=== PATIENT | female | born 1995 | race Caucasian/White ===

== ENCOUNTER 2017-10-15 16:03 | Emergency (ER) | payer OTHER ==
[2017-10-15 16:08] VITALS: BP 130/60; PULSE 77; RESP 18; TEMP 97.8
--- NOTE | 2017-10-15 16:31 | ED ---
General Adult HPI - General Chief complaint: Extremity Problem,Nontraumatic Stated complaint: poss DVT Time Seen by Provider: 10/15/17 16:10 Source: patient, family Mode of arrival: ambulatory Limitations: no limitations - History of Present Illness Initial comments: Christi is a female currently 30w who presents to the ED today for evaluation of bilateral lower extremity swelling which is progressively worsened over the past couple of weeks. Patient reports that she's noticed swelling in her bilateral lower extremities in addition has noticed that she has developed varicose veins which are worse in her left lower extremity than her right. Patient has no known history of DVT or PE. She has no known family history of DVT, PE or letting disorder. She is currently 30 weeks , however. She is physically active and walks on a daily basis. She has not had any recent immobilization of the lower extremities. She reports even bilaterally. Patient denies any other complaints aside from the usual fatigue of and a mild headache. Patient reports that she had hypertension and her first but has not been diagnosed with that during this . She did not suffer from preeclampsia or any other complications. Patient denies fevers, chills, vomiting, abdominal pain in the right upper quadrant abdominal pain. She denies any change in bowel or bladder habits. - Related Data Home Medications Medication Instructions Recorded Confirmed Jwk-Yyje-Sawxc Acid 1 cap PO DAILY 10/15/17 10/15/17 [-U Capsule (formulary)] Allergies Allergy/AdvReac Type Severity Reaction Status Date / Time No Known Allergies Allergy Verified 10/15/17 16:35 Review of Systems ROS Statement: Those systems with pertinent positive or pertinent negative responses have been documented in the HPI. ROS Other: All systems not noted in ROS Statement are negative. Constitutional: Denies: fever, chills Eyes: Denies: eye pain ENT: Denies: ear pain, throat pain Respiratory: Denies: cough, dyspnea Cardiovascular: Denies: chest pain, palpitations Endocrine: Reports: fatigue Gastrointestinal: Denies: abdominal pain, nausea, vomiting, diarrhea, constipation, hematemesis, melena Genitourinary: Denies: urgency, dysuria Musculoskeletal: Denies: back pain Skin: Reports: change in color (Varicose veins left lower extremity) Neurological: Reports: headache (Chronic). Denies: weakness, numbness, paresthesias, confusion Psychiatric: Denies: anxiety, depression Hematological/Lymphatic: Denies: easy bleeding, easy bruising Past Medical History Past Medical History: No Reported History Additional Past Medical History / Comment(s): Polycystic ovarian disease History of Any Multi-Drug Resistant Organisms: None Reported Past Surgical History: Section Additional Past Surgical History / Comment(s): Mole removed from neck; Left wrist ganglion cystectomy Past Psychological History: No Psychological Hx Reported Smoking Status: Former smoker Past Alcohol Use History: None Reported Past Drug Use History: None Reported - Past Family History Mother Family Medical History: Hypertension General Exam Limitations: no limitations General appearance: alert, in no apparent distress Head exam: Present: atraumatic, normocephalic Eye exam: Present: normal appearance, PERRL ENT exam: Present: normal exam Neck exam: Present: normal inspection Respiratory exam: Present: normal lung sounds bilaterally. Absent: respiratory distress, wheezes, rales, rhonchi, stridor Cardiovascular Exam: Present: regular rate, normal rhythm GI/Abdominal exam: Present: soft, other (Obese abdomen, Palpable uterine fundus) Extremities exam: Present: normal capillary refill, pedal edema, other (Left lower extremity). Absent: joint swelling, calf tenderness Back exam: Present: normal inspection, full ROM Neurological exam: Present: alert, oriented X3 Psychiatric exam: Present: normal affect, normal mood Skin exam: Present: warm, dry Course Vital Signs 10/15/17 16:05 Temperature 97.8 F Pulse Rate 77 Respiratory 18 Rate Blood Pressure 130/60 O2 Sat by Pulse 100 Oximetry Medical Decision Making - Medical Decision Making Patient was seen and evaluated, history was obtained from the patient She was sent to the emergency department by her apprentice lineman third step Dr. Aparicio for evaluation of possible lower extremity DVT Physical exam reveals an obese female with a gravid uterus, in no acute distress , mild bilateral lower extremity nonpitting edema Labs and venous Dopplers were ordered Labs were unremarkable Venous ultrasound was completed, mathematical technician reports that there are no acute DVTs. Results were discussed with the patient who expresses relief, patient is scheduled to follow up with OB tomorrow for further evaluation. All questions pertaining to care were answered to the best of my ability and the patient was discharged home in stable condition - Lab Data Result diagrams: 10/15/17 16:25 10/15/17 16:25 Lab Results 10/15/17 10/15/1718 Range/Units 16:25 16:25 16:25 WBC 13.0 H (4.0-11.0) k/uL RBC 3.63 L (3.80-5.40) m/uL Hgb 11.3 L (11.4-16.0) gm/dL Hct 32.5 L (34.0-46.0) % MCV 89.5 (80.0-100.0) fL MCH 31.1 (25.0-35.0) pg MCHC 34.7 (31.0-37.0) g/dL RDW 12.8 (11.5-15.5) % Plt Count 246 (150-450) k/uL Neutrophils % 79 % Lymphocytes % 15 % Monocytes % 4 % Eosinophils % 1 % Basophils % 0 % Neutrophils # 10.3 H (1.3-7.7) k/uL Lymphocytes # 1.9 (1.0-4.8) k/uL Monocytes # 0.5 (0-1.0) k/uL Eosinophils # 0.1 (0-0.7) k/uL Basophils # 0.0 (0-0.2) k/uL Sodium 138 (137-145) mmol/L Potassium 4.0 (3.5-5.1) mmol/L Chloride 105 (98-107) mmol/L Carbon Dioxide 21 L (22-30) mmol/L Anion Gap 12 mmol/L BUN 10 (7-17) mg/dL Creatinine 0.40 L (0.52-1.04) mg/dL Est GFR (CKD-EPI)AfAm >90 (>60 ml/min/1.73 sqM) Est GFR (CKD-EPI)NonAf >90 (>60 ml/min/1.73 sqM) Glucose 84 (74-99) mg/dL Calcium 9.2 (8.4-10.2) mg/dL Total Bilirubin 0.3 (0.2-1.3) mg/dL AST 26 (14-36) U/L ALT 20 (9-52) U/L Alkaline Phosphatase 96 (38-126) U/L Total Protein 6.6 (6.3-8.2) g/dL Albumin 3.5 (3.5-5.0) g/dL Urine Color Light Yellow Urine Appearance Cloudy H (Clear) Urine pH 7.0 (5.0-8.0) Ur Specific [place] 1.010 (1.001-1.035) Urine Protein Negative (Negative) Urine Glucose (UA) Negative (Negative) Urine Ketones Negative (Negative) Urine Blood Negative (Negative) Urine Nitrite Negative (Negative) Urine Bilirubin Negative (Negative) Urine Urobilinogen <2.0 (<2.0) mg/dL Ur Leukocyte Esterase Negative (Negative) Urine RBC 5 (0-5) /hpf Ur Squamous Epith Cells 1 (0-4) /hpf Amorphous Sediment Rare H (None) /hpf Disposition Clinical Impression: Edema of lower extremity in third trimester, antepartum Disposition: HOME SELF-CARE Condition: Good Instructions: Leg Edema (ED) Referrals: None,Stated [Primary Care Provider] - 1-2 days Time of Disposition: 19:04
[2017-10-15 16:37] LABS: Basophils % (A) 0 %; Eosinophils # (A) 0.1 k/uL (0-0.7); Eosinophils % (A) 1 %; HCT 32.5 % (34.0-46.0); HGB 11.3 gm/dL (11.4-16.0); Lymphocytes # (A) 1.9 k/uL (1.0-4.8); Lymphocytes % (A) 15 %; MCH 31.1 pg (25.0-35.0); MCHC 34.7 g/dL (31.0-37.0); MCV 89.5 fL (80.0-100.0); Mean Platelet Volume 6.8; Monocytes # (A) 0.5 k/uL (0-1.0); Monocytes % (A) 4 %; Neutrophils # (A) 10.3 k/uL (1.3-7.7); Neutrophils % (A) 79 %; Platelet Count 246 k/uL (150-450); RBC 3.63 m/uL (3.80-5.40); RDW 12.8 % (11.5-15.5)
[2017-10-15 16:45] LABS: Albumin 3.5 g/dL (3.5-5.0); Amorphous Sediment,Urine Rare /hpf; Anion Gap 12 mmol/L; Appearance,Urine Cloudy (Clear); Bilirubin,Urine Negative (Negative); Blood,Urine Negative (Negative); Calcium 9.2 mg/dL (8.4-10.2); Carbon Dioxide 21 mmol/L (22-30); Chloride 105 mmol/L (98-107); Color,Urine Light Yellow; Glucose 84 mg/dL (74-99); Glucose,Urine (UA) Negative (Negative); Ketones,Urine Negative (Negative); Leukocyte Esterase,Urine Negative (Negative); Nitrite,Urine Negative (Negative); Protein,Urine Negative (Negative); RBC,Urine 5 /hpf (0-5); Sodium 138 mmol/L (137-145); Squamous Epithelial Cell,Urine 1 /hpf (0-4); Total Bilirubin 0.3 mg/dL (0.2-1.3); Total Protein 6.6 g/dL (6.3-8.2); Urobilinogen,Urine <2.0 mg/dL (<2.0)
[2017-10-15 16:46] LABS: Blood Urea Nitrogen 10 mg/dL (7-17)
[2017-10-15 16:49] LABS: ALT 20 U/L (9-52); AST 26 U/L (14-36); Alkaline Phosphatase 96 U/L (38-126)
--- NOTE | 2017-10-15 20:24 | US ---
EXAMINATION TYPE: US venous doppler duplex LE BI DATE OF EXAM: 10/15/2017 6:30 PM COMPARISON: NONE CLINICAL HISTORY: edema. SIDE PERFORMED: TECHNIQUE: The lower extremity deep venous system is examined utilizing real time linear array sonog lola with graded compression, doppler sonography and color-flow sonography. VESSELS IMAGED: External Iliac Vein (EIV) Common Femoral Vein Deep Femoral Vein Greater Saphenous Vein * Femoral Vein Popliteal Vein Small Saphenous Vein * Proximal Calf Veins (* superficial vessels) Right Leg: Left Leg: IMPRESSION: Negative exam. No evidence of deep venous thrombosis in both legs.
== END 2017-10-15 19:30 | disposition home or self-care (01) ==
LOC: EC 16:03
DX: O12.03 Gestational edema, third trimester (principal); O22.03 Varicose veins of lower extremity in pregnancy, third trimester; O99.89 Other specified diseases and conditions complicating pregnancy, childbirth and the puerperium; R53.83 Other fatigue; R51 Headache; Z87.891 Personal history of nicotine dependence; Z79.899 Other long term (current) drug therapy; Z98.890 Other specified postprocedural states; Z3A.30 30 weeks gestation of pregnancy
CPT/HCPCS: 36415; 80053; 81001; 85025; 93970; 99284

== ENCOUNTER 2017-12-18 05:54 | Inpatient (IN) | payer OTHER ==
--- NOTE | 2017-12-17 21:04 | P.HPOB ---
History of Present Illness H&P Date: 12/17/17 Chief Complaint: Repeat section This is a 22-year-old female 2 para 1 with an estimated date of confinement of 12/23/2017, estimated gestational age of 39-2/7 weeks, who presents to labor and delivery for scheduled repeat section. She has been complaining of swelling in her feet along with some nausea and irregular pressure and contractions. Since her cervix is still been closed, she has made the decision to proceed with repeat section instead of vaginal after . Her course was essentially uncomplicated. labs: GC/chlamydia-negative Hepatitis B surface antigen-negative RPR-nonreactive Rubella-immune Light type-A+ Antibody screen-negative HIV-nonreactive Hemoglobin-11.9 Random glucose-85 Obstetrical ultrasound-normal anatomy One hour Glucola-61 Group B streptococcus-negative Obstetrical history: . History of 1 delivery at 40-3/7 weeks due to failed induction of labor. Gynecologic history: No history of sexual transmitted diseases. Review of Systems Constitutional: Denies chills, Denies fever Eyes: denies blurred vision, denies pain Ears, nose, mouth and throat: Denies headache, Denies sore throat Cardiovascular: Denies chest pain, Denies shortness of breath Respiratory: Denies cough Gastrointestinal: Reports nausea Genitourinary: Reports pelvic pain, Reports Musculoskeletal: Reports low back pain Musculoskeletal: bilateral: ankle swelling, foot swelling Integumentary: Denies pruritus, Denies rash Neurological: Denies numbness, Denies weakness Psychiatric: Denies anxiety, Denies depression Past Medical History Past Medical History: No Reported History Additional Past Medical History / Comment(s): Polycystic ovarian disease History of Any Multi-Drug Resistant Organisms: None Reported Past Surgical History: Section Additional Past Surgical History / Comment(s): Mole removed from neck; Left wrist ganglion cystectomy Past Anesthesia/Blood Transfusion Reactions: No Reported Reaction Past Psychological History: No Psychological Hx Reported Smoking Status: Former smoker Past Alcohol Use History: None Reported Past Drug Use History: None Reported - Past Family History Mother Family Medical History: Hypertension Medications and Allergies Home Medications Medication Instructions Recorded Confirmed Type Nyw-Cpqn-Eokbq Acid 1 cap PO DAILY 10/15/17 12/14/17 History [-U Capsule (formulary)] Allergies Allergy/AdvReac Type Severity Reaction Status Date / Time No Known Allergies Allergy Verified 12/14/17 10:38 Exam Osteopathic Statement: *. No significant issues noted on an osteopathic structural exam other than those noted in the History and Physical/Consult. HEENT: Within normal limits Heart: Regular rate and rhythm Lungs: Clear to auscultation bilaterally Abdomen: Cervix: Closed/60%/-2 heart tones: 120s by Doppler Extremities: Negative Homans with +2+ pitting edema Assessment and Plan (1) 39 weeks gestation of Status: Acute Code(s): Z3A.39 - 39 WEEKS GESTATION OF SNOMED Code( s): 01314751 (2) Previous delivery affecting Status: Acute Code(s): O34.219 - MATERNAL CARE FOR UNSP TYPE SCAR FROM PREVIOUS DEL SNOMED Code(s): 411316548 Plan: Proceed with repeat low transverse section. I have discussed the risks, benefits, and alternative therapies for the above- mentioned procedure and for both sedation/anesthesia as well as necessary blood products administration, if indicated, as they pertain to this patient. The patient has indicated her understanding and acceptance of the risks and procedures discussed.
[2017-12-18] MEDS ORDERED: LACTATED RINGERS 1,000 ML IV ONE (06:10)
[2017-12-18] MEDS ORDERED: LIDOCAINE 1% 20 ML VIAL (10MG/ML) FOR IV START INTRADERMA PRN (06:10)
[2017-12-18] MEDS ORDERED: CITRIC ACID-SODIUM CITRATE 15 ML CUP PO ONE (06:10)
[2017-12-18] MEDS ORDERED: ceFAZolin 3 GM in SODIUM CHLORIDE 0.9% 100 ML IVPB ONE (06:10)
[2017-12-18 06:17] VITALS: BMI 44.4
[2017-12-18] MEDS: LACTATED RINGERS 1,000 ML IV SCH ×2 (06:23→13:45)
[2017-12-18 06:27] LABS: Basophils # (A) 0.1 k/uL (0-0.2); Basophils % (A) 1 %; Eosinophils # (A) 0.1 k/uL (0-0.7); Eosinophils % (A) 1 %; HCT 33.4 % (34.0-46.0); HGB 11.6 gm/dL (11.4-16.0); Lymphocytes # (A) 1.9 k/uL (1.0-4.8); Lymphocytes % (A) 18 %; MCH 31.7 pg (25.0-35.0); MCHC 34.7 g/dL (31.0-37.0); MCV 91.3 fL (80.0-100.0); Mean Platelet Volume 7.3; Monocytes # (A) 0.5 k/uL (0-1.0); Monocytes % (A) 5 %; Neutrophils # (A) 8.1 k/uL (1.3-7.7); Neutrophils % (A) 74 %; Platelet Count 253 k/uL (150-450); RBC 3.66 m/uL (3.80-5.40); RDW 13.2 % (11.5-15.5); WBC 10.9 k/uL (4.0-11.0)
[2017-12-18] MEDS ORDERED: OXYTOCIN 10 UNIT/ML 1 ML VIAL ONE (08:00)
[2017-12-18] MEDS ORDERED: ONDANSETRON 4 MG/2 ML VIAL ONE (08:00)
[2017-12-18] MEDS ORDERED: KETOROLAC 30 MG/ML 1 ML VIAL ONE (08:00)
[2017-12-18] MEDS ORDERED: NALBUPHINE 10 MG/ML AMPUL ONE (08:00)
[2017-12-18] MEDS ORDERED: ePHEDrine SULFATE/0.9% NACL/PF 50 MG/5 ML SYRINGE IV ONE (08:00)
[2017-12-18] MEDS ORDERED: MORPHINE SULFATE (PF) 0.3 MG/0.3 ML SYR ONE (08:00)
[2017-12-18] MEDS ORDERED: NALOXONE 0.4 MG/ML 1 ML VIAL IV PRN ×2 (08:51→09:54)
[2017-12-18] MEDS ORDERED: HYDROcodone/APAP 7.5-325MG 1 EACH TAB PO PRN (08:51)
[2017-12-18] MEDS ORDERED: diphenhydrAMINE 50 MG/ML 1 ML VIAL IVP PRN ×2 (08:51)
[2017-12-18] MEDS ORDERED: HYDROcodone/APAP 5-325MG 1 EACH TAB PO PRN (08:51)
[2017-12-18] MEDS ORDERED: diphenhydrAMINE 50 MG CAP PO PRN (08:51)
[2017-12-18] MEDS ORDERED: ZOLPIDEM 5 MG TAB PO PRN (08:51)
[2017-12-18] MEDS ORDERED: METOCLOPRAMIDE 5 MG/ML 2 ML VIAL IVP PRN (08:51)
[2017-12-18] MEDS ORDERED: diphenhydrAMINE 25 MG CAP PO PRN (08:51)
[2017-12-18] MEDS ORDERED: ACETAMINOPHEN TAB 325 MG TAB PO PRN (08:51)
[2017-12-18] MEDS ORDERED: OXYTOCIN 20 UNITS/1000 ML NS 1,000 ML IV SCH (08:51)
[2017-12-18] MEDS ORDERED: ONDANSETRON 4 MG/2 ML VIAL IVP PRN (08:51)
[2017-12-18] MEDS ORDERED: LANOLIN CREAM 5 GM TUBE TOPICAL PRN (08:51)
--- NOTE | 2017-12-18 08:52 | P.OP ---
Date of Procedure: 12/18/17 Preoperative Diagnosis: 1. Intrauterine at 39-2/7 weeks. 2. History of previous section. Postoperative Diagnosis: Same Procedure(s) Performed: Repeat low transverse section Anesthesia: spinal (Duramorph) Surgeon: Leana Ibrahim Toddler Guide #1: Tosha Ha Estimated Blood Loss (ml): 700 Pathology: other Condition: stable Disposition: floor Indications for Procedure: This is a 22-year-old female 2 para 1 at 39-2/7 weeks who presents for scheduled repeat section. I have discussed the risks, benefits, and alternative therapies for the above- mentioned procedure and for both sedation/anesthesia as well as necessary blood products administration, if indicated, as they pertain to this patient. The patient has indicated her understanding and acceptance of the risks and procedures discussed. Operative Findings: A viable male infant is noted in the vertex presentation with scores of 8 at 1 minute and 9 at 5 minutes and infant weight of 7 lbs. 9 oz. Normal uterus tubes and ovaries are noted. Description of Procedure: The patient is taken to the operating room where she is placed in the dorsal supine position with leftward tilt after spinal Duramorph anesthesia is given. She is prepped and draped in the normal sterile fashion. Skin was tested and found to be adequately anesthetized. A Pfannenstiel skin incision was made with a scalpel through the previous laparotomy scar. A second knife was used to carry the incision down to the underlying layer of fascia. The fascia was nicked in the midline with a scalpel and then extended laterally bilaterally with Collins scissors. The anterior lip of the fascia was grasped with 2 Tony clamps and then dissected off the underlying rectus muscle in the midline with Collins scissors. The inferior aspect of the fascial incision was grasped with 2 Tony clamps and dissected off the underlying rectus muscle and the midline with Collins scissors. Next the peritoneum layer was tented up with 2 hemostats and then entered sharply with the scalpel. The incision is extended superiorly and inferiorly with Metzenbaum scissors. Next a DeLee retractor is placed. The vesicouterine peritoneum is entered sharply with Metzenbaum scissors and extended laterally bilaterally with Metzenbaum scissors and then the bladder flap is pushed inferiorly. The lower uterine segment is incised in transverse fashion with the scalpel and then bluntly entered with a hemostat. Clear fluid is noted. The incision was then extended laterally bilaterally with 2 fingers. Next the infant's head is delivered through the incision. Nose and mouth are bulb suctioned. The remainder of the infant is easily delivered and placed on mother's abdomen. Cord is clamped and cut. is taken to warmer by nursing staff. Uterine fundus is gently massaged and placenta is delivered manually. Uterus is exteriorized and cleared of all clots and debris. Uterine incision is closed with 0 Vicryl suture in a running locked fashion. A second layer of 0 Vicryl suture is used in a running fashion for hemostasis. Once adequate hemostasis as assured, the vesicouterine peritoneum is reapproximated with 2-0 Vicryl suture in a running fashion. Posterior cul-de-sac is suctioned of all clots and debris. Uterus is returned to the abdomen. Incision is noted to be hemostatic. Peritoneal layer is closed with 0 Vicryl suture in a running fashion. Muscle layer is reapproximated with 0 Vicryl suture in interrupted fashion. Fascia layer is then closed with 0 PDS suture with 2 sutures meeting in the midline and the knots buried in either side and in the midline. The subcutaneous tissue was then closed with 2-0 Vicryl suture. Skin layer was then closed with zak. All sponge and needle counts are correct. The patient is taken to recovery room in stable condition.
[2017-12-18] MEDS ORDERED: HYDROmorphone 0.5 MG/0.5 ML SYRINGE IVP PRN (09:54)
[2017-12-18] MEDS ORDERED: NALBUPHINE 10 MG/ML AMPUL IV PRN (09:54)
[2017-12-18] MEDS: SENNOSIDES-DOCUSATE SODIUM 1 EACH TAB PO SCH (19:41)
[2017-12-19] MEDS: KETOROLAC 30 MG/ML 1 ML VIAL IVP PRN ×2 (00:35→07:42)
--- NOTE | 2017-12-19 05:52 | P.PNOBGPC ---
Subjective - Subjective Principal diagnosis: Status post repeat section postoperative day #1 Interval history: Patient is doing well. She is ambulating. Lochia is decreasing. She denies any flatus or bowel movement yet. Pain is fairly well controlled at this time. Patient reports: Reports appetite normal, Reports voiding normally, Reports pain well controlled, Reports ambulating normally Amonate: doing well, nursing well Objective - Vital Signs Latest vital signs: Vital Signs Temp Pulse Resp BP Pulse Ox 12/19/17 04:00 97.5 F L 60 16 101/43 12/19/17 02:00 16 12/19/17 00:00 97.7 F 60 16 103/47 12/18/17 22:00 16 100 12/18/17 20:00 97.8 F 55 L 16 108/63 99 12/18/17 18:00 18 99 12/18/17 15:35 97.4 F L 53 L 18 121/60 12/18/17 15:18 18 12/18/17 14:00 18 12/18/17 12:54 18 12/18/17 11:10 98.2 F 64 16 107/53 100 12/18/17 10:52 64 16 125/55 95 12/18/17 10:22 63 16 120/58 97 12/18/17 09:52 96.8 F L 66 16 121/58 97 12/18/17 09:37 67 16 130/60 97 12/18/17 09:22 62 16 137/62 99 12/18/17 09:07 80 16 165/67 98 12/18/17 08:52 96.3 F L 71 16 131/59 97 12/18/17 06:10 98.2 F 98 16 121/63 97 Intake and Output 12/18/17 12/18/17 12/19/17 14:59 22:59 06:59 Intake Total 200 Output Total 531 965 9129 Balance -150 0 -1000 Intake: Oral 200 Output: Urine 856 208 8021 Uretheral (Ardon) 200 Other: # Voids 1 - Exam Extremities: Present: normal, edema (Trace) Abdomen: Present: normal appearance, soft. Absent: distention, tenderness Incision: Present: normal, dry, intact. Absent: erythematous Uterus: Present: normal, firm. Absent: tenderness - Labs Labs: Abnormal Lab Results - Last 24 Hours (Table) 12/18/17 Range/Units 06:20 RBC 3.66 L (3.80-5.40) m/uL Hct 33.4 L (34.0-46.0) % Neutrophils # 8.1 H (1.3-7.7) k/uL Assessment and Plan Assessment: Impression is status post repeat section postoperative day #1. (1) 39 weeks gestation of Current Visit: Yes Status: Acute Code(s): Z3A.39 - 39 WEEKS GESTATION OF SNOMED Code(s): 42499199 (2) Previous delivery affecting Current Visit: Yes Status: Acute Code(s): O34.219 - MATERNAL CARE FOR UNSP TYPE SCAR FROM PREVIOUS DEL SNOMED Code(s): 163213405 Plan: Continue with postoperative care. Will advance diet after flatus. Encouraged ambulation.
--- NOTE | 2017-12-19 07:10 | P.PN ---
Progress Note - Text Progress Note Date: 12/19/17 Postoperative day 1 status post section under spinal anesthesia, and intrathecal morphine given for postoperative analgesia, patient doing well, there is no anesthesia related complications, Patient had no headache, vital signs stable , Assessment and plan= postop day 1 status post , doing well there is no anesthesia related complication.
[2017-12-19] MEDS ORDERED: MORPHINE SULFATE (PF) 0.3 MG/0.3 ML SYR ONE (08:00)
[2017-12-19] MEDS ORDERED: KETOROLAC 30 MG/ML 1 ML VIAL ONE (08:00)
[2017-12-19] MEDS ORDERED: SUCCINYLCHOLINE CHLORIDE 100 MG/5 ML SYR IV ONE (08:00)
[2017-12-19] MEDS ORDERED: NALBUPHINE 10 MG/ML AMPUL ONE (08:00)
[2017-12-19] MEDS ORDERED: OXYTOCIN 10 UNIT/ML 1 ML VIAL ONE (08:00)
[2017-12-19] MEDS ORDERED: ONDANSETRON 4 MG/2 ML VIAL ONE (08:00)
[2017-12-19 08:32] LABS: Basophils % (A) 0 %; Eosinophils # (A) 0.1 k/uL (0-0.7); Eosinophils % (A) 1 %; HCT 27.3 % (34.0-46.0); Lymphocytes # (A) 1.3 k/uL (1.0-4.8); Lymphocytes % (A) 13 %; MCH 31.2 pg (25.0-35.0); MCV 91.8 fL (80.0-100.0); Mean Platelet Volume 7.2; Monocytes # (A) 0.5 k/uL (0-1.0); Monocytes % (A) 5 %; Neutrophils # (A) 8.1 k/uL (1.3-7.7); Neutrophils % (A) 80 %; Platelet Count 201 k/uL (150-450); RBC 2.97 m/uL (3.80-5.40); RDW 13.3 % (11.5-15.5); WBC 10.2 k/uL (4.0-11.0)
[2017-12-19 08:40] LABS: HGB 9.3 gm/dL (11.4-16.0)
[2017-12-19] MEDS: IBUPROFEN 600 MG TAB PO PRN (13:57)
[2017-12-19] MEDS: SENNOSIDES-DOCUSATE SODIUM 1 EACH TAB PO SCH ×2 (19:55)
[2017-12-20 00:34] VITALS: RESP 16
[2017-12-20] MEDS: IBUPROFEN 600 MG TAB PO PRN (04:37)
[2017-12-20] MEDS: SENNOSIDES-DOCUSATE SODIUM 1 EACH TAB PO SCH (08:43)
[2017-12-20 09:01] VITALS: BP 130/64; PULSE 67; TEMP 98.3
--- NOTE | 2017-12-20 09:01 | P.DS ---
Providers Date of admission: 12/18/17 05:54 Expected date of discharge: 12/20/17 Attending physician: Leana Ibrahim Primary care physician: Stated None - Discharge Diagnosis(es) (1) 39 weeks gestation of Current Visit: Yes Status: Acute (2) Previous delivery affecting Current Visit: Yes Status: Acute Hospital Course: This is a 22-year-old female 2 para 1 at 39-2/7 weeks who presented for scheduled repeat section. She underwent a repeat low transverse section on 12/18/2017 and delivered a viable male with scores of 8 at 1 minute and 9 at 5 minutes and weight of 7 lbs. 9 oz. Her postoperative course has been essentially uncomplicated. She is passing flatus but no bowel movement yet. She is taking ibuprofen for pain but does complain of more back pain near her spinal site. She has not taken anything stronger yet. Lochia is decreasing. She is urinating without difficulty. She is breast-feeding. Vital signs are stable. Abdomen is soft with fundus firm and nontender. Incision is clean dry and intact. Extremities show negative Homans. Impression is status post repeat section postoperative day # 2. Plan is to discharge home today. Routine postoperative and instructions are given. Keavy will be removed and Steri-Strips placed prior to discharge. She will be given a prescription for ibuprofen and a few [place] to use as needed for her back pain. She will also be given a prescription for a breast pump. She is advised follow-up in the office in 1 week for a postoperative check and in 6 weeks for check. She is advised to call the office if she has any further questions or concerns prior to her appointment time. Procedures: Repeat low transverse section with delivery of a viable male on 12/18/2017 Patient Condition at Discharge: Stable Plan - Discharge Summary Discharge Rx Participant: Yes New Discharge Prescriptions: New HYDROcodone/APAP 5-325MG [[place] 5-325] 1 each PO Q4HR PRN #18 tab PRN Reason: Moderate Pain Ibuprofen [Motrin] 600 mg PO Q6HR PRN #60 tab PRN Reason: Mild Pain Or Fever >= 100.5 Continue Fod-Xsmv-Uexiy Acid [-U Capsule (formulary)] 1 cap PO DAILY Discharge Medication List Imp-Data-Nzkzm Acid [-U Capsule (formulary)] 1 cap PO DAILY 09/02 [History] HYDROcodone/APAP 5-325MG [[place] 5-325] 1 each PO Q4HR PRN #18 tab 12/20/17 [Rx] Ibuprofen [Motrin] 600 mg PO Q6HR PRN #60 tab 12/20/17 [Rx] Follow up Appointment(s)/Referral(s): Leana Ibrahim DO [Doctor of Osteopathic Medicine] - 1 Week Activity/Diet/Wound Care/Special Instructions: Instructions 1. Do not begin any exercise program for 3 weeks. 2. Do not resume sexual relations for 3 weeks or longer if uncomfortable. 3. You may take tub baths or showers at any time. 4. You may use tampons if desired after 3 weeks. 5. Keep the area of episiotomy (stitches) clean and dry. 6. If you are not nursing, wear a good fitting, supportive bra during the day and limit fluid intake for at least 1 week to prevent breast engorgement. 7. Call the office, [phone], within the next week to make appointment for your 6 week checkup if it has not already been made. 8. Report any of the following occurrences to the doctor promptly: a. Heavy, excessive bleeding b. Chills, fever c. Burning or frequency of urination d. Pain or redness and breasts if nursing e. Increasing pain or swelling in episiotomy (stitches). In addition to the above instructions, the following additional should be followed: 1. No heavy lifting or straining (exercising) until after 6 week checkup. 2. Keep abdominal incision clean and dry: You may wear a dressing if more comfortable. 3. Make office appointment for 10 days after going home or as instructed by her doctor. Discharge Disposition: HOME SELF-CARE
== END 2017-12-20 13:50 | disposition home or self-care (01) | DRG 766 ==
LOC: 4FBP 05:54
PROVIDERS: ADMIT Obstetrics & Gynecology; ATTEND Obstetrics & Gynecology
PROC: 10D00Z1 Extraction of Products of Conception, Low, Open Approach (ICD-10-PCS; principal; 2017-12-18 08:00)
DX: O34.211 Maternal care for low transverse scar from previous cesarean delivery (principal); Z3A.39 39 weeks gestation of pregnancy; Z37.0 Single live birth; Z87.891 Personal history of nicotine dependence; Z82.49 Family history of ischemic heart disease and other diseases of the circulatory system
CPT/HCPCS: 85025; 86850; 86900; 86901; 88307

== ENCOUNTER 2019-01-28 14:06 | Outpatient (CLI) | payer OTHER ==
[2019-01-28 14:39] VITALS: BP 116/55; PULSE 77; RESP 14; TEMP 98.7
[2019-01-28 15:03] LABS: Appearance,Urine Clear (Clear); Bilirubin,Urine Negative (Negative); Blood,Urine Negative (Negative); Color,Urine Yellow; Glucose,Urine (UA) Negative (Negative); Ketones,Urine Negative (Negative); Leukocyte Esterase,Urine Negative (Negative); Nitrite,Urine Negative (Negative); PH, Urine 6.5 (5.0-8.0); Protein,Urine Negative (Negative); Specific Gravity,Urine 1.011 (1.001-1.035); Urobilinogen,Urine <2.0 mg/dL (<2.0)
[2019-01-28 15:08] LABS: Basophils % (A) 0 %; Eosinophils # (A) 0.1 k/uL (0-0.7); Eosinophils % (A) 1 %; HCT 31.2 % (34.0-46.0); HGB 10.9 gm/dL (11.4-16.0); Lymphocytes # (A) 1.4 k/uL (1.0-4.8); Lymphocytes % (A) 15 %; MCH 30.9 pg (25.0-35.0); MCHC 34.9 g/dL (31.0-37.0); MCV 88.4 fL (80.0-100.0); Mean Platelet Volume 7.4; Monocytes # (A) 0.4 k/uL (0-1.0); Monocytes % (A) 4 %; Neutrophils # (A) 7.2 k/uL (1.3-7.7); Neutrophils % (A) 78 %; Platelet Count 234 k/uL (150-450); RBC 3.53 m/uL (3.80-5.40); RDW 13.8 % (11.5-15.5); WBC 9.3 k/uL (3.8-10.6)
[2019-01-28 15:17] LABS: ALT 11 U/L (9-52); AST 14 U/L (14-36); African American GFR (CKD) >90 (>60 ml/min/1.73 sqM); Blood Urea Nitrogen 3 mg/dL (7-17); LDH 406 U/L (313-618); Uric Acid 3.8 mg/dL (3.7-7.4)
--- NOTE | 2019-02-03 20:52 | P.MSEPDOC ---
Presenting Problems - Arrival Data Date of Arrival on Unit: 01/28/19 Time of Arrival on Unit: 14:06 Mode of Transport: Ambulatory - Complaint Comment: sent from office for pih workup Medical History - Information : 3 Para: 2 Term: 2 : 0 Abortions: Spontaneous or Elective: 0 Number of Living Children: 2 - Gestational Age Gestational Age by AMY (wks/days): 32 Weeks and 5 Days - History Complications: Prior Review of Systems - Review of Systems Constitutional: No problems Breast: No problems ENT: No problems Cardiovascular: No problems Respiratory: No problems Gastrointestinal: No problems Genitourinary: No problems Musculoskeletal: No problems Neurological: No problems Skin: No problems Vital Signs - Temperature Temperature: 98.7 F Temperature Source: Oral - Pulse Right Brachial Pulse Rate: 77 Pulse Assessment Method: Automatic Cuff - Respirations Respiratory Rate: 14 Oxygen Delivery Method: Room Air - Blood Pressure Right Arm Blood Pressure: 116/55 Blood Pressure Mean: 75 Blood Pressure Source: Automatic Cuff Medical Screen Scoring (Pre) - Cervical Exam Dilation: Exam Deferred - Uterine Contractions Frequency: N/A Duration: N/A Intensity: N/A - Maternal Vital Signs Maternal Temperature: N/A Maternal Blood Pressure: N/A Signs of Preeclampsia: N/A Maternal Respirations: N/A - Maternal Trauma Maternal Trauma: N/A - Assessment - Baby A Heart Rate - NICHD Category: Category I (Normal) = 0 - Total Score - Baby A Total Score - Baby A: 0 - Total Score - Baby B Total Score - Baby B: 0 - Total Score - Baby C Total Score - Baby C: 0 - Level of Risk - Baby A Level of Risk - Baby A: Low (0-5) - Level of Risk - Baby B Level of Risk - Baby B: Low (0-5) - Level of Risk - Baby C Level of Risk - Baby C: Low (0-5) Physician Notification (Post) - Physician Notified Physician Notified Date: 01/28/19 Physician Notified Time: 15:38 Physician/Practitioner Notified:: ariel Spoke With: ariel New Order Received: Yes - Notification Comment Comment: reported bps, lab results, reactive nst and no contractions. pt may be discharged home, follow up at scheduled appointment next week Disposition - Disposition OB Disposition: Discharge to home Discharge Date: 01/28/19 Discharge Time: 15:53 I agree with the RN Medical Screening Exam: Yes Risk & Benefit of care provided described in d/c instruction: Yes Diagnosis: GESTATIONAL HTN W/O SIGNIFICANT PROTEINURIA, THIRD TRIMESTER
== END 2019-01-28 15:53 | disposition home or self-care (01) ==
LOC: FBPOP 14:06
PROVIDERS: ATTEND Obstetrics & Gynecology
DX: O13.3 Gestational [pregnancy-induced] hypertension without significant proteinuria, third trimester (principal); Z3A.32 32 weeks gestation of pregnancy
CPT/HCPCS: 59025; 81003; 82565; 82570; 83615; 84156; 84450; 84460; 84520; 84550; 85025

== ENCOUNTER 2019-03-05 17:18 | Outpatient (CLI) | payer OTHER ==
[2019-03-05 18:10] VITALS: BP 111/65; PULSE 90; RESP 16; TEMP 98.5
--- NOTE | 2019-03-05 23:27 | P.MSEPDOC ---
Presenting Problems - Arrival Data Date of Arrival on Unit: 03/05/19 Time of Arrival on Unit: 17:24 Mode of Transport: Ambulatory - Complaint OB-Reason for Admission/Chief Complaint: Rule Out SROM Comment: pt reports possible leaking of fluid around 1600 Medical History - Information : 3 Para: 2 Term: 2 : 0 Abortions: Spontaneous or Elective: 0 Number of Living Children: 2 - Gestational Age Gestational Age by AMY (wks/days): 37 Weeks and 6 Days Review of Systems - Review of Systems Constitutional: No problems Breast: No problems ENT: No problems Cardiovascular: No problems Respiratory: No problems Gastrointestinal: No problems Genitourinary: No problems Musculoskeletal: No problems Neurological: No problems Skin: No problems Vital Signs - Temperature Temperature: 98.5 F Temperature Source: Oral - Pulse Right Brachial Pulse Rate: 90 Pulse Assessment Method: Automatic Cuff - Respirations Respiratory Rate: 16 Oxygen Delivery Method: Room Air - Blood Pressure Right Arm Blood Pressure: 111/65 Blood Pressure Mean: 80 Blood Pressure Source: Automatic Cuff Medical Screen Scoring (Pre) - Cervical Exam Dilation: 0 cm = 0 Membranes: Intact - Uterine Contractions Frequency: N/A - Maternal Vital Signs Maternal Temperature: N/A Maternal Blood Pressure: N/A Signs of Preeclampsia: N/A Maternal Respirations: N/A - Maternal Trauma Maternal Trauma: N/A - Assessment - Baby A Baseline FHR: 125 - Total Score - Baby A Total Score - Baby A: 0 - Total Score - Baby B Total Score - Baby B: 0 - Total Score - Baby C Total Score - Baby C: 0 - Level of Risk - Baby A Level of Risk - Baby A: Low (0-5) - Level of Risk - Baby B Level of Risk - Baby B: Low (0-5) - Level of Risk - Baby C Level of Risk - Baby C: Low (0-5) Physician Notification (Pre) - Physician Notified Physician Notified Date: 03/05/19 Physician Notified Time: 17:35 Physician/Practitioner Notifed:: ariel Spoke With: ariel Brush Order Received: Yes - Notification Comment Comment: if amnisure negative, reactive nst, pt may be discharged home Physician Notification (Post) - Physician Notified Physician Notified Date: 03/05/19 Physician Notified Time: 17:35 Physician/Practitioner Notified:: ariel Spoke With: george New Order Received: Yes - Notification Comment Comment: discharge home with reactive nst, negative amnisure Disposition - Disposition OB Disposition: Discharge to home Discharge Date: 03/05/19 Discharge Time: 18:25 I agree with the RN Medical Screening Exam: Yes Risk & Benefit of care provided described in d/c instruction: Yes Diagnosis: FALSE LABOR AT OR AFTER 37 COMPLETED WEEKS OF GESTATION
== END 2019-03-05 18:34 | disposition home or self-care (01) ==
LOC: FBPOP 17:18
PROVIDERS: ATTEND Obstetrics & Gynecology
DX: O47.1 False labor at or after 37 completed weeks of gestation (principal); Z3A.37 37 weeks gestation of pregnancy
CPT/HCPCS: 59025; 84112; G0463; 99213

== ENCOUNTER 2019-03-19 06:29 | Inpatient (IN) | payer OTHER ==
[2019-03-12 15:22] VITALS: BMI 49.0
--- NOTE | 2019-03-18 19:34 | P.HPOB ---
History of Present Illness H&P Date: 03/18/19 Chief Complaint: Scheduled repeat section with possible tubal ligation This is a 24-year-old female 3 para 2 with an estimated date of confinement of 03/20/2019, estimated gestational age of 39-6/7 weeks, who presents for scheduled repeat section with possible bilateral partial salpingectomy. Her has been uncomplicated by swelling in her legs throughout the . She did have an isolated elevated blood pressure at 32 weeks 5 days but all of her blood pressures since then have been normal. All of her labs were normal. She has been feeling irregular contractions and pressure. She has admitted to good movement. labs: Hepatitis B surface antigen-negative RPR-nonreactive Rubella-immune Blood type-A+ Antibody screen-negative Hemoglobin-11.6 Toxoplasma screen-negative Random glucose-84 One hour Glucola-102 Group B streptococcus-negative Obstetrical history: . History of 2 previous sections. Gynecologic history: No history of sexual transmitted diseases. Review of Systems Constitutional: Denies chills, Denies fever Eyes: denies blurred vision, denies pain Ears, nose, mouth and throat: Denies headache, Denies sore throat Cardiovascular: Denies chest pain, Denies shortness of breath Respiratory: Denies cough Gastrointestinal: Reports abdominal pain (Irregular contractions) Genitourinary: Reports pelvic pain, Reports Musculoskeletal: Reports low back pain Musculoskeletal: bilateral: ankle swelling Integumentary: Denies pruritus, Denies rash Neurological: Denies numbness, Denies weakness Psychiatric: Denies anxiety, Denies depression Past Medical History Past Medical History: No Reported History Additional Past Medical History / Comment(s): Polycystic ovarian disease History of Any Multi-Drug Resistant Organisms: None Reported Past Surgical History: Section (2) Additional Past Surgical History / Comment(s): Mole removed from neck; Left wrist ganglion cystectomy Past Anesthesia/Blood Transfusion Reactions: No Reported Reaction Past Psychological History: No Psychological Hx Reported Smoking Status: Former smoker Past Alcohol Use History: None Reported Past Drug Use History: None Reported - Past Family History Mother Family Medical History: Hypertension Medications and Allergies Home Medications Medication Instructions Recorded Confirmed Type Utg-Drrj-Bteaf Acid 1 cap PO DAILY 10/15/17 03/12/19 History [-U Capsule (formulary)] Allergies Allergy/AdvReac Type Severity Reaction Status Date / Time No Known Allergies Allergy Verified 03/12/19 15:10 Exam Osteopathic Statement: *. No significant issues noted on an osteopathic structural exam other than those noted in the History and Physical/Consult. HEENT: Within normal limits Heart: Regular rate and rhythm Lungs: Clear to auscultation bilaterally Abdomen: Cervix: Closed/50%/floating heart tones 140s by Doppler Extremities: 1-2+ pitting edema in lower extremities Assessment and Plan (1) Family planning Status: Acute Code(s): Z30.09 - ENCOUNTER FOR OT GENERAL CNSL AND ADVICE ON CONTRACEPTION SNOMED Code(s): 147802508 (2) 39 weeks gestation of Status: Acute Code(s): Z3A.39 - 39 WEEKS GESTATION OF SNOMED Code(s): 70488391 (3) Previous delivery affecting Status: Acute Code(s): O34.219 - MATERNAL CARE FOR UNSP TYPE SCAR FROM PREVIOUS DEL SNOMED Code(s): 701988458 Plan: Proceed with repeat low transverse section with possible bilateral partial salpingectomy. I have discussed the risks, benefits, and alternative therapies for the above- mentioned procedure and for both sedation/anesthesia as well as necessary blood products administration, if indicated, as they pertain to this patient. The patient has indicated her understanding and acceptance of the risks and procedures discussed.
[2019-03-19] MEDS ORDERED: LACTATED RINGERS 1,000 ML IV ONE (06:45)
[2019-03-19] MEDS ORDERED: LIDOCAINE 1% 20 ML VIAL (10MG/ML) FOR IV START INTRADERMA PRN (06:45)
[2019-03-19] MEDS ORDERED: CITRIC ACID-SODIUM CITRATE 15 ML CUP PO ONE (06:45)
[2019-03-19] MEDS ORDERED: ceFAZolin 3 GM in SODIUM CHLORIDE 0.9% 100 ML IVPB ONE (07:00)
[2019-03-19 07:37] LABS: Basophils # (A) 0.1 k/uL (0-0.2); Basophils % (A) 1 %; Eosinophils # (A) 0.1 k/uL (0-0.7); Eosinophils % (A) 1 %; HCT 31.5 % (34.0-46.0); Lymphocytes # (A) 1.5 k/uL (1.0-4.8); Lymphocytes % (A) 16 %; MCH 31.4 pg (25.0-35.0); MCHC 34.8 g/dL (31.0-37.0); Mean Platelet Volume 7.7; Monocytes # (A) 0.4 k/uL (0-1.0); Monocytes % (A) 4 %; Neutrophils % (A) 77 %; Platelet Count 207 k/uL (150-450); RBC 3.49 m/uL (3.80-5.40); RDW 14.9 % (11.5-15.5); WBC 9.2 k/uL (3.8-10.6)
[2019-03-19] MEDS ORDERED: ONDANSETRON 4 MG/2 ML VIAL ONE (08:19)
[2019-03-19] MEDS ORDERED: NALBUPHINE 10 MG/ML (1 ML AMP) ONE (08:19)
[2019-03-19] MEDS ORDERED: OXYTOCIN 10 UNIT/ML 1 ML VIAL ONE (08:19)
[2019-03-19] MEDS ORDERED: MORPHINE SULFATE (PF) 0.3 MG/0.3 ML SYR ONE (08:19)
[2019-03-19] MEDS ORDERED: KETOROLAC 30 MG/ML 1 ML VIAL ONE (08:19)
[2019-03-19] MEDS ORDERED: ePHEDrine SULFATE/0.9% NACL/PF 50 MG/5 ML SYRINGE IV ONE (08:19)
--- NOTE | 2019-03-19 09:11 | P.OP ---
Date of Procedure: 03/19/19 Preoperative Diagnosis: 1. Intrauterine at 39-6/7 weeks. 2. History of previous section. 3. Family-planning. Postoperative Diagnosis: Same Procedure(s) Performed: Repeat low transverse section with bilateral partial salpingectomy Anesthesia: spinal (Duramorph) Surgeon: Leana Ibrahim Home Improvement Contractor #1: Tosha Ha Estimated Blood Loss (ml): 600 Pathology: other (Portions of left and right fallopian tubes) Condition: stable Disposition: floor Indications for Procedure: This is a 24-year-old female 3 para 2 at 39-6/7 weeks who presents for scheduled repeat section with bilateral partial salpingectomy. I have discussed the risks, benefits, and alternative therapies for the above- mentioned procedure and for both sedation/anesthesia as well as necessary blood products administration, if indicated, as they pertain to this patient. The patient has indicated her understanding and acceptance of the risks and procedures discussed. Operative Findings: A viable male is noted in the vertex presentation with scores of 9 at 1 minute and 9 at 5 minutes and weight of 6 lbs. 14 oz. Normal uterus tubes and ovaries are noted. Description of Procedure: The patient is taken to the operating room where she is placed in the dorsal supine position with leftward tilt after spinal Duramorph anesthesia is given. She is prepped and draped in the normal sterile fashion. Skin was tested and found to be adequately anesthetized. A Pfannenstiel skin incision was made with a scalpel through the previous laparotomy scar. A second knife was used to carry the incision down to the underlying layer of fascia. The fascia was nicked in the midline with a scalpel and then extended laterally bilaterally with Collins scissors. The anterior lip of the fascia was grasped with 2 Tony clamps and then dissected off the underlying rectus muscle in the midline with Collins scissors. The inferior aspect of the fascial incision was grasped with 2 Tony clamps and dissected off the underlying rectus muscle and the midline with Collins scissors. Next the peritoneum layer was tented up with 2 hemostats and then entered sharply with the scalpel. The incision is extended superiorly and inferiorly with Metzenbaum scissors. Next a DeLee retractor is placed. The vesicouterine peritoneum is entered sharply with Metzenbaum scissors and extended laterally bilaterally with Metzenbaum scissors and then the bladder flap is pushed inferiorly. The lower uterine segment is incised in transverse fashion with the scalpel and then bluntly entered with a hemostat. Clear fluid is noted. The incision was then extended laterally bilaterally with 2 fingers. Next the infant's head is delivered through the incision. Nose and mouth are bulb suctioned. The remainder of the is easily delivered and placed on mother's abdomen. Cord is clamped and cut. is taken to warmer by nursing staff. Uterine fundus is gently massaged and placenta is delivered manually. Uterus is exteriorized and cleared of all clots and debris. Uterine incision is closed with 0 Vicryl suture in a running locked fashion. Once adequate hemostasis as assured, the vesicouterine peritoneum is reapproximated with 2-0 Vicryl suture in a running fashion. Next attention is turned to the tubes. The right fallopian tube is grasped in the midportion with a hemostat. Mesosalpinx is entered with Bovie cautery. 0 Vicryl suture is tied 2 times around both proximal and distal portion of the tube. The knuckle of tube is then removed with Metzenbaum scissors and the ends of the tubes are cauterized with Bovie cautery. The same procedure is carried out on the left fallopian tube. Excellent hemostasis is noted. Posterior cul-de-sac is suctioned of all clots and debris. Uterus is returned to the abdomen. Incision is noted to be hemostatic. Both tubal sites are noted be hemostatic. Peritoneal layer is closed with 0 Vicryl suture in a running fashion. Muscle layer is reapproximated with 0 Vicryl suture in interrupted fashion. Fascia layer is then closed with 0 PDS suture with 2 sutures meeting in the midline and the knots buried in either side and in the midline. The subcutaneous tissue was then closed with 2-0 Vicryl suture. Skin layer was then closed with zak. All sponge and needle counts are correct. The patient is taken to recovery room in stable condition.
[2019-03-19] MEDS ORDERED: LANOLIN CREAM 5 GM TUBE TOPICAL PRN (09:35)
[2019-03-19] MEDS ORDERED: ONDANSETRON 4 MG/2 ML VIAL IVP PRN (09:35)
[2019-03-19] MEDS ORDERED: SIMETHICONE 80 MG CHEWABLE PO PRN (09:35)
[2019-03-19] MEDS ORDERED: HYDROcodone/APAP 7.5-325MG 1 EACH TAB PO PRN (09:35)
[2019-03-19] MEDS ORDERED: NALOXONE 0.4 MG/ML 1 ML VIAL IV PRN (09:35)
[2019-03-19] MEDS ORDERED: HYDROcodone/APAP 5-325MG 1 EACH TAB PO PRN (09:35)
[2019-03-19] MEDS ORDERED: KETOROLAC 30 MG/ML 1 ML VIAL IVP PRN (09:35)
[2019-03-19] MEDS ORDERED: METOCLOPRAMIDE 5 MG/ML 2 ML VIAL IVP PRN (09:35)
[2019-03-19] MEDS ORDERED: diphenhydrAMINE 50 MG/ML 1 ML VIAL IVP PRN ×2 (09:35)
[2019-03-19] MEDS ORDERED: OXYTOCIN 20 UNITS/1000 ML NS 1,000 ML IV SCH (09:35)
[2019-03-19] MEDS ORDERED: diphenhydrAMINE 50 MG CAP PO PRN (09:35)
[2019-03-19] MEDS ORDERED: diphenhydrAMINE 25 MG CAP PO PRN (09:35)
[2019-03-19] MEDS ORDERED: ZOLPIDEM 5 MG TAB PO PRN (09:35)
[2019-03-19] MEDS: SENNOSIDES-DOCUSATE SODIUM 1 EACH TAB PO SCH (10:11)
[2019-03-20] MEDS: LACTATED RINGERS 1,000 ML IV SCH ×2 (02:41→21:16)
[2019-03-20] MEDS: SENNOSIDES-DOCUSATE SODIUM 1 EACH TAB PO SCH ×4 (02:41→21:16)
[2019-03-20 08:13] LABS: Basophils % (A) 0 %; Eosinophils # (A) 0.1 k/uL (0-0.7); Eosinophils % (A) 1 %; HCT 30.9 % (34.0-46.0); HGB 10.6 gm/dL (11.4-16.0); Lymphocytes # (A) 1.7 k/uL (1.0-4.8); Lymphocytes % (A) 12 %; MCH 31.3 pg (25.0-35.0); MCHC 34.4 g/dL (31.0-37.0); Mean Platelet Volume 7.9; Monocytes # (A) 0.8 k/uL (0-1.0); Monocytes % (A) 5 %; Neutrophils # (A) 11.8 k/uL (1.3-7.7); Neutrophils % (A) 81 %; Platelet Count 239 k/uL (150-450); RBC 3.39 m/uL (3.80-5.40); RDW 14.9 % (11.5-15.5); WBC 14.6 k/uL (3.8-10.6)
--- NOTE | 2019-03-20 08:49 | P.PNOBGPC ---
Subjective - Subjective Principal diagnosis: Status post repeat section with tubal postoperative day #1 Interval history: Patient is doing well. She is ambulating. Lochia is decreasing. Pain is well controlled without any pain medicine at this time. She is passing flatus but no bowel movement yet. Patient reports: Reports appetite normal, Reports voiding normally, Reports pain well controlled, Reports ambulating normally : doing well Objective - Vital Signs Latest vital signs: Vital Signs Temp Pulse Resp BP Pulse Ox 03/20/19 08:00 98.3 F 61 18 106/52 03/20/19 04:00 98.3 F 68 18 113/54 99 03/20/19 00:00 97.7 F 59 L 18 108/58 98 03/19/19 20:00 98.2 F 67 18 124/85 98 03/19/19 16:00 97.5 F L 59 L 18 109/60 97 03/19/19 12:00 97.5 F L 66 18 114/62 98 03/19/19 11:21 97.8 F 63 16 101/57 98 03/19/19 10:51 97.6 F 66 16 109/51 98 03/19/19 10:21 69 16 137/61 98 03/19/19 10:06 80 18 143/60 98 03/19/19 09:51 98.7 F 68 18 112/53 98 03/19/19 09:36 69 16 126/58 98 03/19/19 09:21 97.6 F 76 16 128/67 98 Intake and Output 03/19/19 03/20/19 03/20/19 22:59 06:59 14:59 Output Total 600 300 Balance -600 -300 Output: Urine 600 300 Uretheral (Ardon) 300 Other: # Voids 1 - Exam Extremities: Present: normal, edema (Trace). Absent: tenderness Abdomen: Present: normal appearance, soft (Positive bowel sounds 4). Absent: distention, tenderness Incision: Present: normal, dry, intact. Absent: erythematous Uterus: Present: normal, firm. Absent: tenderness - Labs Labs: Abnormal Lab Results - Last 24 Hours (Table) 03/20/19 Range/Units 06:51 WBC 14.6 H (3.8-10.6) k/uL RBC 3.39 L (3.80-5.40) m/uL Hgb 10.6 L (11.4-16.0) gm/dL Hct 30.9 L (34.0-46.0) % Neutrophils # 11.8 H (1.3-7.7) k/uL Assessment and Plan Assessment: Status post repeat section with tubal ligation postoperative day #1 (1) Family planning Current Visit: No Status: Acute Code(s): Z30.09 - ENCOUNTER FOR OTH GENERAL CNSL AND ADVICE ON CONTRACEPTION SNOMED Code(s): 964585390 (2) 39 weeks gestation of Current Visit: No Status: Acute Code(s): Z3A.39 - 39 WEEKS GESTATION OF SNOMED Code(s): 21029334 (3) Previous delivery affecting Current Visit: No Status: Acute Code(s): O34.219 - MATERNAL CARE FOR UNSP TYPE SCAR FROM PREVIOUS DEL SNOMED Code(s): 077858393 Plan: Continue care. Pain medication as needed. Encouraged ambulation.
--- NOTE | 2019-03-20 11:32 | P.PN ---
Progress Note - Text Progress Note Date: 03/20/19 Patient was seen at 07:25. Postoperative day 1 status post section under spinal anesthesia, and intrathecal morphine given for postoperative analgesia, patient doing well, there is no anesthesia related complications, Patient had no headache, vital signs stable , Assessment and plan= postop day 1 status post , doing well there is no anesthesia related complication.
[2019-03-20] MEDS: IBUPROFEN 600 MG TAB PO PRN (15:26)
[2019-03-20] MEDS: ACETAMINOPHEN TAB 325 MG TAB PO PRN (18:51)
[2019-03-21] MEDS: LACTATED RINGERS 1,000 ML IV SCH (01:17)
[2019-03-21] MEDS: IBUPROFEN 600 MG TAB PO PRN ×2 (03:16→09:26)
[2019-03-21] MEDS: ACETAMINOPHEN TAB 325 MG TAB PO PRN (07:54)
[2019-03-21] MEDS: SENNOSIDES-DOCUSATE SODIUM 1 EACH TAB PO SCH (07:54)
[2019-03-21 08:23] VITALS: BP 140/82; PULSE 55; RESP 18; TEMP 98.1
--- NOTE | 2019-03-21 08:44 | P.DS ---
Providers Date of admission: 03/19/19 06:29 Expected date of discharge: 03/21/19 Attending physician: Leana Ibrahim Primary care physician: Stated None - Discharge Diagnosis(es) (1) Family planning Current Visit: No Status: Acute (2) 39 weeks gestation of Current Visit: No Status: Acute (3) Previous delivery affecting Current Visit: No Status: Acute Hospital Course: This is a 24-year-old female 3 para 2 at 39-6/7 weeks who presented for scheduled repeat section with tubal ligation. She underwent a repeat low transverse section with bilateral partial salpingectomy on 03/19/2019 and delivered a viable male with scores of 9 at 1 minute and 9 at 5 minutes and infant weight of 6 lbs. 14 oz. Her course has been uncomplicated. She is passing flatus. Lochia is decreasing. She also has had a bowel movement. Pain is fairly well controlled with ibuprofen. She is breast-feeding and does have a breast pump at home. Vital signs are stable. Abdomen is soft with positive bowel sounds 4. Incision is clean dry and intact with zak in place. Extremities show negative Homans. Impression is status post repeat low transverse section with bilateral partial salpingectomy postoperative day #2. Plan is to discharge home today. Routine and postoperative instructions are given. Corcoran will be removed and Steri-Strips placed prior to discharge. She will be given a prescription for ibuprofen. She is advised follow-up in the office in approximately 1 week for a postoperative check. She is advised to call the office if she has any further questions or concerns prior to her appointment time. She is also advised to schedule a 6 week visit. Plan - Discharge Summary Discharge Rx Participant: Yes New Discharge Prescriptions: New Ibuprofen [Motrin] 600 mg PO Q6HR PRN #60 tab PRN Reason: Mild Pain Or Fever >= 100.5 Continue Aox-Vslf-Lciiq Acid [-U Capsule (formulary)] 1 cap PO DAILY Discharge Medication List Oxo-Ikcp-Fwjcm Acid [-U Capsule (formulary)] 1 cap PO DAILY 10/15/17 [History] Ibuprofen [Motrin] 600 mg PO Q6HR PRN #60 tab 03/21/19 [Rx] Follow up Appointment(s)/Referral(s): Leana Ibrahim DO [Doctor of Osteopathic Medicine] - 1 Week Activity/Diet/Wound Care/Special Instructions: Instructions 1. Do not begin any exercise program for 3 weeks. 2. Do not resume sexual relations for 3 weeks or longer if uncomfortable. 3. You may take tub baths or showers at any time. 4. You may use tampons if desired after 3 weeks. 5. Keep the area of episiotomy (stitches) clean and dry. 6. If you are not nursing, wear a good fitting, supportive bra during the day and limit fluid intake for at least 1 week to prevent breast engorgement. 7. Call the office, [phone], within the next week to make appointment for your 6 week checkup if it has not already been made. 8. Report any of the following occurrences to the doctor promptly: a. Heavy, excessive bleeding b. Chills, fever c. Burning or frequency of urination d. Pain or redness and breasts if nursing e. Increasing pain or swelling in episiotomy (stitches). In addition to the above instructions, the following additional should be followed: 1. No heavy lifting or straining (exercising) until after 6 week checkup. 2. Keep abdominal incision clean and dry: You may wear a dressing if more comfortable. 3. Make office appointment for 10 days after going home or as instructed by her doctor. Discharge Disposition: HOME SELF-CARE
== END 2019-03-21 12:05 | disposition home or self-care (01) | DRG 785 ==
LOC: 4FBP 06:29
PROVIDERS: ADMIT Obstetrics & Gynecology; ATTEND Obstetrics & Gynecology
PROC: 0UB70ZZ Excision of Bilateral Fallopian Tubes, Open Approach (ICD-10-PCS; 2019-03-19)
PROC: 10D00Z1 Extraction of Products of Conception, Low, Open Approach (ICD-10-PCS; principal; 2019-03-19 08:30)
DX: O34.211 Maternal care for low transverse scar from previous cesarean delivery (principal); O99.284 Endocrine, nutritional and metabolic diseases complicating childbirth; E28.2 Polycystic ovarian syndrome; Z30.2 Encounter for sterilization; Z37.0 Single live birth; Z3A.39 39 weeks gestation of pregnancy; Z87.891 Personal history of nicotine dependence; Z82.49 Family history of ischemic heart disease and other diseases of the circulatory system
CPT/HCPCS: 85025; 86850; 86900; 86901; 88302